=== PATIENT | female | born 1995 | race Caucasian/White ===

== ENCOUNTER 2016-10-29 09:18 | Emergency (ER) | payer OTHER ==
[~2016-10-29] VITALS: Ht 157.5 cm; Wt 81.0 kg
[~2016-10-29 09:18] MED LIST: MTR600X PO; PREN1TAB29 PO
[2016-10-29 09:22] VITALS: TEMP 36.9; Ht 157.5 cm; Wt 81.0 kg
[2016-10-29] MEDS ORDERED: SODIUM CHLORIDE 0.9% 1000ML 500 ML IV STA (09:50)
[2016-10-29] MEDS ORDERED: KETOROLAC TROMETHAMINE 30 MG/ML VIAL IV STA (09:50)
[2016-10-29 09:54] VITALS: O2SAT 99
[2016-10-29] MEDS ORDERED: OPTIRAY 320 IV PRN (10:00)
--- NOTE | 2016-10-29 10:02 | EMERGENCY ROOM VISIT NOTE ---
History Report prepared by Evin: Ibeth Nichols Under the Supervision of: Dr. Keith Odell M.D. First contact with patient: 09:46 Chief Complaint: CHEST PAIN Stated Complaint: CHEST PAIN SINCE 3 AM Nursing Triage Summary: Patient reports she awoke with sharp mid sternal chest pain that goes straight into her back at approx 0300am this morning. Patient denies any nausea, diaphoresis or history of cardiac problems. Patient did feel short of breath with the pain. Patient also reports she has an atrial septal aneurysm but states she was told she did not require any follow up again at all. History of Present Illness The patient is a 21 year old female who presents to the Emergency Room with complaints of constant substernal chest pain that started 7 hours ago. The pain radiates into her back. She states that the pain is not worse when taking a breath and she denies shortness of breath. The patient rates her discomfort as a 6/10 in severity. She states that nothing seems to make the pain worse. She tried to relieve her pain with Tylenol and she also took an antacid, but neither offered her any relief. The patient has experienced this type of the pain in the past, but she has never been evaluated for it because it typically resolves on its own. She denies any recent illness or cough. The patient denies any personal or family history of blood clots. She also denies any recent long trips. Source of History: patient Onset: 7 hours ago Position: chest (substernal) Symptom Intensity: 6/10 Timing: constant Modifying Factors (Worsening): other (none) Associated Symptoms: + back pain, No SOB, No cough Note: no recent illness Review of Systems See HPI for pertinent positives & negatives. A total of 10 systems reviewed and were otherwise negative. Past Medical & Surgical Medical Problems: (1) Uterine contractions at greater than 20 weeks of gestation Family History No pertinent family history Social History Smoking Status: Never Smoker Marital Status: Housing Status: lives with family Current/Historical Medications Scheduled Medroxyprogesterone Acetate (C (Depo-Provera Contraceptiv), 1 DOSE INJ EVERY 3 MONTHS Allergies Coded Allergies: Amoxicillin (Verified Allergy, Unknown, HIVES, 10/29/16) Physical Exam Vital Signs Date Time Temp Pulse Resp B/P Pulse Ox O2 Delivery O2 Flow Rate FiO2 10/29/16 11:04 99 19 144/95 99 Room Air 10/29/16 09:54 99 Room Air 10/29/16 09:49 94 10/29/16 09:34 98 Room Air 10/29/16 09:34 98 Room Air 10/29/16 09:22 36.9 117 18 174/106 100 Room Air Physical Exam GENERAL: Patient is in no acute distress. HEENT: No acute trauma, normocephalic atraumatic, mucous membranes moist, no nasal congestion, no scleral icterus. NECK: No stridor, no adenopathy, no meningismus, trachea is midline. CHEST: Nontender chest wall. LUNGS: Clear to auscultation bilaterally, no wheeze, no rhonchi, breath sounds equal. HEART: Tachycardic with subtle systolic murmur, rhythm is regular. ABDOMEN: Soft, nontender, bowel sounds positive, no hernias, no peritonitis. EXTREMITIES: No cyanosis or edema, full range of motion of all the joints without pain or difficulty, no signs for acute trauma. NEUROLOGIC: Oriented x 3, no acute motor or sensory deficits, no focal weakness. SKIN: No rash, no jaundice, no diaphoresis. Medical Decision & Procedures ER Provider Diagnostic Interpretation: X ray results and stated below per my interpretation and radiologist interpretation. Other radiology results and stated below per my review and radiologist interpretation: CHEST ONE VIEW PORTABLE IMPRESSION: No active disease in the chest. Electronically signed by: Anton Pinon M.D. 10/29/2016 10:26 AM Dictated Date/Time: 10/29/2016 10:[address] ANGIOGRAM OF THE CHEST IMPRESSION: 1. No acute intrathoracic findings 2. No evidence of acute pulmonary embolism 3. No focal pulmonary consolidation 4. No pathologic adenopathy Electronically signed by: Anton Pinon M.D. 10/29/2016 11:09 AM Dictated Date/Time: 10/29/2016 11:05 AM Laboratory Results 10/29/16 09:32 10/29/16 09:32 Test 10/29/16 09:32 Red Blood Count 5.18 M/uL (4.2-5.4) Mean Corpuscular Volume 80.3 fL (80-100) Mean Corpuscular Hemoglobin 27.2 pg (25-34) Mean Corpuscular Hemoglobin Concent 33.9 g/dl (32-36) RDW Standard Deviation 39.1 fL (36.4-46.3) RDW Coefficient of Variation 13.3 % (11.5-14.5) Mean Platelet Volume 12.4 fL (7.4-10.4) Prothrombin Time 11.3 SECONDS (9.0-12.0) Prothromb Time International Ratio 1.1 (0.9-1.1) Activated Partial Thromboplast Time 29.5 SECONDS (21.0-31.0) Partial Thromboplastin Ratio 1.1 Anion Gap 12.0 mmol/L (3-11) Est Creatinine Clear Calc Drug Dose 116.6 ml/min Estimated GFR () 132.4 Estimated GFR (Non- 114.2 BUN/Creatinine Ratio 9.7 (10-20) Calcium Level 9.7 mg/dl (8.5-10.1) Total Bilirubin 0.9 mg/dl (0.2-1) Aspartate Amino Transf (AST/SGOT) 14 U/L (15-37) Alanine Aminotransferase (ALT/SGPT) 25 U/L (12-78) Alkaline Phosphatase 79 U/L (45-117) Troponin I < 0.015 ng/ml (0-0.045) Total Protein 8.0 gm/dl (6.4-8.2) Albumin 4.0 gm/dl (3.4-5.0) Globulin 4.0 gm/dl (2.5-4.0) Albumin/Globulin Ratio 1.0 (0.9-2) Lipase 163 U/L (73-393) Laboratory results reviewed by me. Medications Administered Medications (Trade) Dose Ordered Sig/Monique Route Start Time Stop Time Status Last Admin Dose Admin Sodium Chloride (Nss 1000ml) 500 ml @ 999 mls/hr Q31M STAT IV 10/29/16 09:50 10/29/16 10:20 DC 10/29/16 09:50 999 MLS/HR Ketorolac Tromethamine (Toradol Inj) 30 mg NOW STAT IV 10/29/16 09:50 10/29/16 09:52 DC 10/29/16 10:00 30 MG ECG Indication: chest pain Rate (beats per minute): 106 Rhythm: sinus tachycardia Findings: nonspecific-ST abn, no ectopy ED Course 0946: The patient was evaluated in room B8. A complete history and physical exam was performed. 0950: Ordered Toradol 30 mg IV, Sodium Chloride 500 ml @ 999 mls/hr IV 1116: Reevaluated the patient. Discussed results and discharge instructions: she verbalized understanding and agreement. The patient is ready for discharge. Medical Decision Differential diagnoses considered include cardiac ischemia, pericarditis, pulmonary embolism, aortic dissection, pneumonia, musculoskeletal pain, pancreatitis. There is no leukocytosis or worrisome anemia. No significant electrolyte abnormality, kidney failure or hepatitis. EKG shows a mild sinus tachycardia, no acute ischemia. Cardiac enzyme testing 1 is not consistent with acute cardiac injury. Chest x-ray shows no mediastinal widening, pneumonia or pneumothorax. Chest CT shows no PE, no evidence for aortic dissection. The patient received IV saline, IV Toradol. She seems comfortable. The patient's pain is likely musculoskeletal. She was reassured by her findings. She is being discharged with [id number] pain medication, heat, rest. I did suggest some Zantac in case this may be some esophageal irritation , she will try this for a few days. The patient was encouraged to return if worsening. Impression Primary Impression: Precordial chest pain Scribe Attestation The scribe's documentation has been prepared under my direction and personally reviewed by me in its entirety. I confirm that the note above accurately reflects all work, treatment, procedures, and medical decision making performed by me. Departure Information Dispostion Home / Self-Care Referrals No Doctor, Assigned (PCP) Forms HOME CARE DOCUMENTATION FORM, IMPORTANT VISIT INFORMATION Patient Instructions My [facility] Additional Instructions heat to chest wall motrin or tylenol for pain can try zantac 2x per day for 1 week to see if this improves the pain return for worsening symptoms heart and lung testing today was all ok
[2016-10-29 10:21] LABS: HEMATOCRIT 41.6 % (37-47); MEAN CELL VOLUME 80.3 fL (80-100); MEAN CORPUSCULAR HEMOGLOBIN 27.2 pg (25-34); MEAN CORPUSCULAR HGB CONC 33.9 g/dl (32-36); MEAN PLATELET VOLUME 12.4 fL (7.4-10.4); PLATELET COUNT 216 K/uL (130-400); RED BLOOD COUNT 5.18 M/uL (4.2-5.4); WHITE BLOOD COUNT 7.77 K/uL (4.8-10.8)
--- NOTE | 2016-10-29 10:27 | DIAGNOSTIC IMAGING REPORT ---
CHEST ONE VIEW PORTABLE CLINICAL HISTORY: Atypical chest pain COMPARISON STUDY: No previous studies for comparison. FINDINGS: The cardiac and mediastinal contours are normal. There is no evidence of focal pulmonary consolidation. There is no evidence of failure. No pleural effusions are visualized.[ IMPRESSION: No active disease in the chest. Electronically signed by: Anton Pinon M.D. 10/29/2016 10:26 AM Dictated Date/Time: 10/29/2016 10:25 AM
[2016-10-29 10:29] LABS: ALT/SGPT 25 U/L (12-78); BLOOD UREA NITROGEN 7 mg/dl (7-18); BUN/CREATININE RATIO 9.7 (10-20); CALCIUM 9.7 mg/dl (8.5-10.1); CARBON DIOXIDE 25 mmol/L (21-32); CHLORIDE 106 mmol/L (98-107); CREATININE 0.74 mg/dl (0.60-1.20); GLUCOSE 103 mg/dl (70-99); POTASSIUM 3.6 mmol/L (3.5-5.1); SODIUM 143 mmol/L (136-145)
[2016-10-29 10:30] LABS: INR 1.1 (0.9-1.1); PARTIAL THROMBOPLASTIN RATIO 1.1; PROTHROMBIN TIME (PATIENT) 11.3 SECONDS (9.0-12.0)
[2016-10-29 10:34] LABS: ALKALINE PHOSPHATASE 79 U/L (45-117); AST/SGOT 14 U/L (15-37)
[2016-10-29] MEDS ORDERED: MEDR150I INJ (11:02)
[2016-10-29 11:04] VITALS: BP 144/95; PULSE 99; O2SAT 99
--- NOTE | 2016-10-29 11:11 | DIAGNOSTIC IMAGING REPORT ---
CT ANGIOGRAM OF THE CHEST CLINICAL HISTORY: Atypical chest pain. Possible acute pulmonary embolism. COMPARISON STUDY: Chest x-ray dated 10/29/2016 TECHNIQUE: Following the IV administration of 90 mL of [id number]-320, CT angiogram of the thorax was performed from the thoracic inlet to the lung bases utilizing the pulmonary embolus protocol. Images are reviewed in the axial, sagittal, and coronal planes. IV contrast was administered without complication. MIP imaging was performed. CT DOSE: 233.79 mGy.cm FINDINGS: No pathologically enlarged axillary mediastinal or hilar lymph nodes were visualized. There was no evidence of thoracic aortic dilatation. There were no pulmonary artery filling defects to indicate acute pulmonary embolism. No pleural effusions are visualized. There was no evidence of focal pulmonary consolidation. There is a tiny calcified right lower lobe granuloma IMPRESSION: 1. No acute intrathoracic findings 2. No evidence of acute pulmonary embolism 3. No focal pulmonary consolidation 4. No pathologic adenopathy Electronically signed by: Anton Pinon M.D. 10/29/2016 11:09 AM Dictated Date/Time: 10/29/2016 11:05 AM
[2016-12-25] MEDS ORDERED: HYDR-5688 PO (10:07)
== END 2016-10-29 11:29 | disposition home or self-care (01) ==
LOC: C.EDB 09:19
DX: R07.2 Precordial pain (principal)

== ENCOUNTER 2016-12-23 06:43 | Inpatient (IN) | payer OTHER ==
[~2016-12-23] VITALS: Ht 157.5 cm; Wt 81.0 kg
[~2016-12-23 06:43] MED LIST changes: +MEDR150I INJ; -MTR600X PO; -PREN1TAB29 PO
[2016-12-23] MEDS ORDERED: CALC500C3 PO (07:00)
[2016-12-23] MEDS ORDERED: IBUP-1050 PO (07:00)
[2016-12-23] MEDS ORDERED: SODIUM CHLORIDE 0.9% 500ML 500 ML IV STA (07:16)
[2016-12-23] MEDS ORDERED: SODIUM CHLORIDE 0.9% 1000ML 1,000 ML IV STA (07:16)
--- NOTE | 2016-12-23 07:26 | EMERGENCY ROOM VISIT NOTE ---
History Report prepared by Nandiniibdiann: Rod Astudillo Under the Supervision of: Dr. Linda Adams M.D. First contact with patient: 06:55 Chief Complaint: ABDOMINAL PAIN Stated Complaint: RT UPR QUAD PAIN X 3DAYS History of Present Illness The patient is a 21 year old female who presents to the Emergency Room with complaints of intermittent right upper quadrant pain for the past three days. The pain has been constant since yesterday morning. The pain is currently rated 6/10 in severity. The pain intermittently radiates to her back. She also notes Chills and nausea. She does not feel febrile and denies urinary symptoms, cough or cold symptoms. The patient has had decreased appetite and is feeling bloated. She did not have anything to eat this morning. Yesterday she only ate 2 tacos for dinner. She has been taking Tylenol and Motrin for pain without significant relief. She denies any past abdominal surgeries. She has not had any significant weight changes recently. She has a family history of gallbladder disease. P:1 A:0. LNMP last month and she denies the possibility of secondary to Depo use. Source of History: patient Onset: three days ago Position: abdomen (RUQ) Symptom Intensity: 6/10 Timing: intermittent Associated Symptoms: + back pain (radiation), + chills, + nausea, No cough, No fevers, No urinary symptoms Review of Systems See HPI for pertinent positives & negatives. A total of 10 systems reviewed and were otherwise negative. Past Medical & Surgical Medical Problems: (1) Uterine contractions at greater than 20 weeks of gestation Family History No pertinent family history Social History Smoking Status: Never Smoker Marital Status: Housing Status: lives with family Occupation Status: employed Current/Historical Medications Scheduled Calcium Carbonate (Tums), 1-2 TABS PO UPSET STOMACH Ibuprofen (Advil), 200-600 MG PO Q4H Medroxyprogesterone Acetate (C (Depo-Provera Contraceptiv), 1 DOSE INJ EVERY 3 MONTHS Allergies Coded Allergies: Amoxicillin (Verified Allergy, Unknown, HIVES, 12/23/16) Physical Exam Vital Signs Date Time Temp Pulse Resp B/P Pulse Ox O2 Delivery O2 Flow Rate FiO2 12/23/16 10:26 85 18 134/90 98 Room Air 12/23/16 09:55 98 Room Air 12/23/16 08:28 79 18 146/93 100 Room Air 12/23/16 06:47 37.1 90 18 156/98 100 Room Air Physical Exam Vital signs reviewed. General: Well-appearing female, in no significant distress. HEENT: No scleral icterus, PERRLA, neck supple. Atraumatic. Cardiovascular: Regular rate and rhythm, no extra sounds. Pulmonary: Clear to auscultation bilaterally, normal work of breathing. Abdomen: Soft, nondistended, positive bowel sounds. There is mild right upper quadrant tenderness to palpation. Musculoskeletal: Atraumatic, no peripheral edema. Neurologic: Patient awake alert and oriented x 3. Skin: Warm, dry, no rash Medical Decision & Procedures ER Provider Diagnostic Interpretation: Radiology results as stated below per my review and radiologist interpretation: Right upper quadrant ultrasound GALLBLADDER-ABD LIMITED CLINICAL HISTORY: cholecystitis pain. Nausea. TECHNIQUE: Ultrasound COMPARISON STUDY: None FINDINGS: Several small gallstones. Gallbladder wall thickened at 5 mm. Normal caliber biliary ductal system with a maximum diameter 4 mm. Liver pancreas and right kidney are unremarkable. No evidence for hydronephrosis. IMPRESSION: 1. Findings consistent with chronic calculus cholecystitis. 2. Multiple small gallstones with a thickened gallbladder wall. 3. Normal caliber bile ducts Electronically signed by: Ganesh Shelton M.D. 12/23/2016 8:33 AM Dictated Date/Time: 12/23/2016 8:31 AM Laboratory Results 12/23/16 07:19 Red Blood Count 5.23, Mean Corpuscular Volume 81.5, Mean Corpuscular Hemoglobin 27.9, Mean Corpuscular Hemoglobin Concent 34.3, Mean Platelet Volume 12.7, Neutrophils (%) (Auto) 76.0, Lymphocytes (%) (Auto) 15.8, Monocytes (%) (Auto) 7.1, Eosinophils (%) (Auto) 0.8, Basophils (%) (Auto) 0.1, Neutrophils # (Auto) 9.24, Lymphocytes # (Auto) 1.92, Monocytes # (Auto) 0.87, Eosinophils # (Auto) 0.10, Basophils # (Auto) 0.01 12/23/16 07:19 Test 12/23/16 07:06 12/23/16 07:19 12/23/16 08:31 Urine Renal Epithelial Cells /lpf (0-5) Urine Mucus PRESENT (NONE PRSENT) Urine Test NEG (NEG) White Blood Count 12.17 K/uL (4.8-10.8) Red Blood Count 5.23 M/uL (4.2-5.4) Hemoglobin 14.6 g/dL (12.0-16.0) Hematocrit 42.6 % (37-47) Mean Corpuscular Volume 81.5 fL (80-100) Mean Corpuscular Hemoglobin 27.9 pg (25-34) Mean Corpuscular Hemoglobin Concent 34.3 g/dl (32-36) Platelet Count 200 K/uL (130-400) Mean Platelet Volume 12.7 fL (7.4-10.4) Neutrophils (%) (Auto) 76.0 % Lymphocytes (%) (Auto) 15.8 % Monocytes (%) (Auto) 7.1 % Eosinophils (%) (Auto) 0.8 % Basophils (%) (Auto) 0.1 % Neutrophils # (Auto) 9.24 K/uL (1.4-6.5) Lymphocytes # (Auto) 1.92 K/uL (1.2-3.4) Monocytes # (Auto) 0.87 K/uL (0.11-0.59) Eosinophils # (Auto) 0.10 K/uL (0-0.5) Basophils # (Auto) 0.01 K/uL (0-0.2) RDW Standard Deviation 40.0 fL (36.4-46.3) RDW Coefficient of Variation 13.3 % (11.5-14.5) Immature Granulocyte % (Auto) 0.2 % Immature Granulocyte # (Auto) 0.03 K/uL (0.00-0.02) Anion Gap 11.0 mmol/L (3-11) Est Creatinine Clear Calc Drug Dose 118.2 ml/min Estimated GFR () 134.5 Estimated GFR (Non- 116.1 BUN/Creatinine Ratio 12.7 (10-20) Calcium Level 9.7 mg/dl (8.5-10.1) Lipase 121 U/L (73-393) Urine Color YELLOW Urine Appearance CLOUDY (CLEAR) Urine pH 7.5 (4.5-7.5) Urine Specific [place]app[place] 1.015 (1.000-1.030) Urine Protein NEG (NEG) Urine Glucose (UA) NEG (NEG) Urine Ketones 3+ (NEG) Urine Occult Blood NEG (NEG) Urine Nitrite NEG (NEG) Urine Bilirubin NEG (NEG) Urine Urobilinogen NEG (NEG) Urine Leukocyte Esterase NEG (NEG) Urine WBC (Auto) 1-5 /hpf (0-5) Urine RBC (Auto) 0-4 /hpf (0-4) Urine Hyaline Casts (Auto) 0 /lpf (0-5) Urine Epithelial Cells (Auto) 10-20 /lpf (0-5) Urine Bacteria (Auto) NEG (NEG) Date/Time Source Procedure Growth Status 12/23/16 07:06 Urine , Clean Catch Urine Culture - Final MORE THAN THREE TYPES OF ORGANISMS [place]... Complete Laboratory results per my review. Medications Administered Medications (Trade) Dose Ordered Sig/Monique Route Start Time Stop Time Status Last Admin Dose Admin Sodium Chloride 500 ml @ 999 mls/hr Q31M STAT IV 12/23/16 07:16 12/23/16 07:46 DC 12/23/16 07:34 999 MLS/HR Sodium Chloride (Nss 1000ml) 1,000 ml @ 125 mls/hr Q8H STAT IV 12/23/16 07:16 12/23/16 12:06 DC 12/23/16 07:35 125 MLS/HR Ciprofloxacin/ Dextrose (Cipro / D5w) 400 mg NOW STAT IV 12/23/16 09:10 12/23/16 09:12 DC 12/23/16 10:27 400 MG Metronidazole 500 mg 500 mg NOW STAT IV 12/23/16 09:10 12/23/16 09:12 DC 12/23/16 09:24 500 MG Lactated Ringer's (Lr 1000ml) 1,000 ml @ 125 mls/hr Q8H IV 12/23/16 10:31 01/22/17 10:30 12/24/16 10:01 125 MLS/HR ED Course 0700: The patient was evaluated by the [facility]. 0716: NSS 1000 ml @ 125 mls/hr, NSS 500 ml @ 999 mls/hr. 0720: Past medical records reviewed. The patient was evaluated in room B5. A complete history and physical examination was performed. 0840: Updated the patient. 0910: Flagyl / NSS 500 mg IV, Cipro / D5w 400 mg IV. 0910: The patient will be evaluated by Dr. Nunez, General Surgeon. 1051: Morphine Sulfate 4 mg IV. Medical Decision Differential diagnosis: Etiologies such as appendicitis, diverticulitis, PUD, biliary pathology, UTI, pancreatitis, obstruction, mesenteric ischemia, aortic pathology, infections, inflammatory bowel disease, renal colic, as well as others were entertained. This patient was evaluated and appeared to be in no significant distress. IV access was obtained and laboratory work was drawn. The patient was placed on the escort blind. Ultrasound of right upper quadrant is consistent with acute cholecystitis. Patient's case was discussed with the general surgeon on- call, Dr. Nunez. Patient has a penicillin allergy and was medicated with IV Cipro and Flagyl. She was informed of the findings and is comfortable with the plan for admission and further management. Impression Primary Impression: Acute cholecystitis Scribe Attestation The scribe's documentation has been prepared under my direction and personally reviewed by me in its entirety. I confirm that the note above accurately reflects all work, treatment, procedures, and medical decision making performed by me. Departure Information Dispostion Being Evaluated By Surgeon Referrals No Doctor, Assigned (PCP) Patient Instructions My [facility]
[2016-12-23 07:31] LABS: BASO % 0.1 %; BASO ABS # 0.01 K/uL (0-0.2); COMPLETE YES; EOS % 0.8 %; HEMATOCRIT 42.6 % (37-47); IG% 0.2 %; LYMPH % 15.8 %; LYMPH ABS # 1.92 K/uL (1.2-3.4); MEAN CELL VOLUME 81.5 fL (80-100); MEAN CORPUSCULAR HEMOGLOBIN 27.9 pg (25-34); MEAN CORPUSCULAR HGB CONC 34.3 g/dl (32-36); MEAN PLATELET VOLUME 12.7 fL (7.4-10.4); MONO % 7.1 %; PLATELET COUNT 200 K/uL (130-400); RED BLOOD COUNT 5.23 M/uL (4.2-5.4); WHITE BLOOD COUNT 12.17 K/uL (4.8-10.8)
[2016-12-23 07:41] LABS: URINE APPEARANCE CLEAR (CLEAR); URINE BILIRUBIN NEG (NEG); URINE COLOR YELLOW; URINE EPITHELIAL CELL AUTO >30 /lpf (0-5); URINE NITRITE NEG (NEG); URINE PH 5.5 (4.5-7.5); URINE SPECIFIC GRAVITY 1.019 (1.000-1.030); UROBILINOGEN NEG (NEG); ZZUR CULT IF INDIC CLEAN CATCH YES
[2016-12-23 07:48] LABS: BUN/CREATININE RATIO 12.7 (10-20); CALCIUM 9.7 mg/dl (8.5-10.1); CREATININE 0.73 mg/dl (0.60-1.20); POTASSIUM 3.6 mmol/L (3.5-5.1)
[2016-12-23 07:54] LABS: MANUAL MICROSCOPIC REQUIRED? NO; REVIEW REQ? YES
[2016-12-23 08:10] LABS: URINE MUCUS PRESENT (NONE PRSENT)
--- NOTE | 2016-12-23 08:34 | DIAGNOSTIC IMAGING REPORT ---
Right upper quadrant ultrasound GALLBLADDER-ABD LIMITED CLINICAL HISTORY: cholecystitis pain. Nausea. TECHNIQUE: Ultrasound COMPARISON STUDY: None FINDINGS: Several small gallstones. Gallbladder wall thickened at 5 mm. Normal caliber biliary ductal system with a maximum diameter 4 mm. Liver pancreas and right kidney are unremarkable. No evidence for hydronephrosis. IMPRESSION: 1. Findings consistent with chronic calculus cholecystitis. 2. Multiple small gallstones with a thickened gallbladder wall. 3. Normal caliber bile ducts Electronically signed by: Ganseh Shelton M.D. 12/23/2016 8:33 AM Dictated Date/Time: 12/23/2016 8:31 AM
[2016-12-23 09:02] LABS: URINE APPEARANCE CLOUDY (CLEAR); URINE BILIRUBIN NEG (NEG); URINE COLOR YELLOW; URINE NITRITE NEG (NEG); URINE PH 7.5 (4.5-7.5); URINE SPECIFIC GRAVITY 1.015 (1.000-1.030); UROBILINOGEN NEG (NEG); ZZUR CULT IF INDIC CLEAN CATCH NO
[2016-12-23 09:04] LABS: MANUAL MICROSCOPIC REQUIRED? NO; REVIEW REQ? NO
[2016-12-23] MEDS ORDERED: CIPROFLOXACIN 400MG / 200ML D5W IV STA (09:10)
[2016-12-23] MEDS ORDERED: METRONIDAZOLE 500MG / 100ML NSS IV STA (09:10)
[2016-12-23 09:55] VITALS: O2SAT 98; Ht 157.5 cm; Wt 81.0 kg
--- NOTE | 2016-12-23 10:42 | History and Physical ---
History & Physical Date Dec 23, 2016. Chief Complaint RUQ pain and nausea for about 5 days. no emesis. History of Present Illness The patient is a 21 year old female with complaints of Past Medical/Surgical History Medical Problems: (1) Uterine contractions at greater than 20 weeks of gestation Additional History Hepatic Disease: No Endocrine Disorder: No Kidney Disease: No Hypertension: No Heart Disease: No Bleeding Tendencies: No Infectious Diseases: No Allergies Coded Allergies: Amoxicillin (Verified Allergy, Unknown, HIVES, 12/23/16) Home Medications Scheduled Calcium Carbonate (Tums), 1-2 TABS PO UPSET STOMACH Ibuprofen (Advil), 200-600 MG PO Q4H Medroxyprogesterone Acetate (C (Depo-Provera Contraceptiv), 1 DOSE INJ EVERY 3 MONTHS Physical Examination Skin: warm/dry Eyes: normal inspection, EOMI ENT: normal ENT inspection Head: normocephalic Neck: supple, no adenopathy Respiratory/Chest: lungs clear Cardiovascular: regular rate, rhythm, no edema Abdomen / GI: + pertinent finding (mild/mod RUQ ttp. no g/r/r) Extremities: normal inspection Neurologic/Psych: alert, oriented x 3 Diagnosis 1. acute cholecystits/gallstones 2. elevated LFT's Plan of Treatment will need lap chana pt's T. bili slightly elevated...will admit/antibiotics/fluids. recheck LFT's, if improved, will plan lap chana tomorrow. If LFT's worsen, may need ERCP prior to lap chana discussed options/risks of surgery ( bleeding/dvt/pe/injury to bile ducts or bowel, infection, bile leaks etc...)...answered all her questions. pt agrees with plan
[2016-12-23] MEDS ORDERED: MoRPHine SULFATE 2 MG/ML CARP IV PRN (10:45)
[2016-12-23] MEDS ORDERED: IBUPROFEN 600 MG TAB PO PRN (10:45)
[2016-12-23] MEDS ORDERED: ACETAMINOPHEN 325 MG TAB PO PRN (10:45)
[2016-12-23] MEDS ORDERED: HYDROCODONE/ACETAMOPHEN 5/325MG TAB PO PRN (10:45)
[2016-12-23] MEDS ORDERED: ONDANSETRON INJ 2 MG/ML 2 ML VIAL IV SCH (10:45)
[2016-12-23] MEDS ORDERED: MoRPHine SULFATE 4 MG/ML 1 ML CARP\\VIAL IV STA (10:51)
[2016-12-23 11:30] VITALS: BP 138/95; PULSE 87; TEMP 36.9; O2SAT 97
[2016-12-23] MEDS ORDERED: IV FLUIDS COMPLETED PRN (11:45)
[2016-12-23] MEDS: AZTREONAM IV 1,000 MG in DEXTROSE 5% 100ML 100 ML IV SCH ×2 (13:06→19:33)
[2016-12-23] MEDS: LACTATED RINGER'S 1000ML 1,000 ML IV SCH ×2 (13:07→18:05)
[2016-12-23] MEDS: MoRPHine SULFATE 4 MG/ML 1 ML CARP\\VIAL IV PRN ×3 (13:11→23:19)
[2016-12-23 14:53] VITALS: BP 123/79; PULSE 104; TEMP 37.2; O2SAT 98
[2016-12-23] MEDS ORDERED: CIPROFLOXACIN / D5W 400 MG in PREMIXED IN D5W 200 ML IV SCH (21:00)
[2016-12-23 23:08] VITALS: BP 134/87; PULSE 86; TEMP 37.4; O2SAT 97
[2016-12-23 23:35] VITALS: O2SAT 97
[2016-12-24] MEDS: LACTATED RINGER'S 1000ML 1,000 ML IV SCH ×3 (02:07→18:12)
[2016-12-24] MEDS: MoRPHine SULFATE 4 MG/ML 1 ML CARP\\VIAL IV PRN ×3 (03:44→17:21)
[2016-12-24] MEDS: AZTREONAM IV 1,000 MG in DEXTROSE 5% 100ML 100 ML IV SCH ×3 (03:45→19:35)
[2016-12-24 07:07] VITALS: BP 118/82; PULSE 88; TEMP 37.7; O2SAT 98
[2016-12-24 07:26] VITALS: TEMP 37.4
--- NOTE | 2016-12-24 09:34 | Surgery Progress Note ---
Surgery Progress Note Date of Service Dec 24, 2016. Subjective pt continues to have RUQ pain but describing more colicky pain/comes and goes. no n/v. no new issues Objective Vital Signs: Date Time Temp Pulse Resp B/P Pulse Ox O2 Delivery O2 Flow Rate FiO2 12/24/16 07:26 37.4 12/24/16 07:23 Room Air 12/24/16 07:07 37.7 88 16 118/82 98 Room Air 12/23/16 23:35 97 Room Air 12/23/16 23:08 37.4 86 16 134/87 97 Room Air 12/23/16 15:15 Room Air 12/23/16 14:53 37.2 104 18 123/79 98 Room Air 12/23/16 11:35 Room Air 12/23/16 11:30 36.9 87 20 138/95 97 Room Air 12/23/16 10:26 85 18 134/90 98 Room Air 12/23/16 09:55 98 Room Air General Appearance: no apparent distress Head: normocephalic Neck: supple Respiratory/Chest: lungs clear Cardiovascular: no edema Abdomen: soft, + pertinent finding (mild RUQ ttp. no g/r/r) Extremities: no pedal edema Laboratory Results: Results Past 24 Hours Test 12/24/16 05:20 Range/Units Total Bilirubin 1.9 0.2-1 mg/dl Direct Bilirubin 0.3 0-0.2 mg/dl Aspartate Amino Transf (AST/SGOT) 112 15-37 U/L Alanine Aminotransferase (ALT/SGPT) 127 12-78 U/L Alkaline Phosphatase 96 45-117 U/L Total Protein 7.1 6.4-8.2 gm/dl Albumin 3.3 3.4-5.0 gm/dl Assessment & Plan 1. worsening LFT's will obtain MRCP...pending results may need ERCP prior to lap chana cont IV antibiotics recheck LFT"s
--- NOTE | 2016-12-24 14:16 | DIAGNOSTIC IMAGING REPORT ---
MRCP CLINICAL HISTORY: gallstones, elevated LFTs right upper quadrant pain TECHNIQUE: Multiaxial MRI acquisition COMPARISON STUDY: Right upper quadrant ultrasound same date FINDINGS: Multiple gallstones within a moderately thickened gallbladder lumen and/or wall. Potential trace amount of pericholecystic edematous change. Liver is uniform throughout. Spleen is unremarkable. Pancreas is uniform. MRCP component of the study shows normal caliber biliary ductal system. There is no evidence for significant filling defect. Pancreatic duct is unremarkable throughout. IMPRESSION: 1. Gallstones are within the gallbladder , with the possibility of subacute to chronic cholecystitis a consideration. 2.. I cannot entirely exclude a component of acute cholecystitis. 3. Normal MRCP. No filling defects or distention of the biliary or pancreatic ductal systems. 4. Remainder of the study is unremarkable. Electronically signed by: Ganesh Shelton M.D. 12/24/2016 2:15 PM Dictated Date/Time: 12/24/2016 2:10 PM
[2016-12-24 15:10] VITALS: BP 156/89; PULSE 106; TEMP 37.4; O2SAT 97
--- NOTE | 2016-12-24 17:38 | Discharge Instructions ---
Discharge Instructions Date of Service Dec 24, 2016. Admission Reason for Admission: Acute Cholecystitis Discharge Discharge Diagnosis / Problem: acute cholecystits/elevated LFT's Discharge Goals Goal(s): Decrease discomfort Activity Recommendations Activity Limitations: as noted below Lifting Limitations: no more than 10 pounds Exercise/Sports Limitations: until after follow-up appointment May Resume Sexual Activity: after follow-up appointment Shower/Bathe: no limitations . Instructions / Follow-Up Instructions / Follow-Up call [phone] for f/u appointment with Dr. Nunez or if you have any problems/questions Current Hospital Diet Patient's current hospital diet: Clear Liquid Diet Discharge Diet Recommended Diet: Regular Diet Procedures Procedures Performed: lap chana Pending Studies Studies pending at discharge: yes List of pending studies: path report Medical Emergencies . Who to Call and When: Medical Emergencies: If at any time you feel your situation is an emergency, please call 911 immediately. . Non-Emergent Contact Non-Emergency issues call your: Primary Care Provider, Surgeon Call Non-Emergent contact if: temperature is above 101, wound has increased drainage, wound has increased redness . "Provider Documentation" section prepared by Evan Nunez. VTE Core Measure Inpt VTE Proph given/why not?: Luisito Castillo, SCD's
--- NOTE | 2016-12-24 18:19 | Anesthesiology Progress Note ---
Anesthesia Progress Note Date of Service Dec 24, 2016. Progress Notes The patient is a 21 y/o female with no significant PMH scheduled for Lap cholecystectomy with Dr. Nunez tomorrow. The patient reports that she has a h/o atrial septal aneurysm, but that no further follow up was necessary. She has an 8 month old at home and is very active. She is able to climb two flights of stairs without chest pain or shortness of breath. EKG from October showed ST with HR 106 no ischemic changes. Urine HCG done on admission was negative. She was has a Mallampati I airway with good flexion/extension. Her cardiac and pulmonary exams are normal. The patient appears optimized for surgery tomorrow. She consented for GA. All questions were answered. She was instructed not to eat or drink anything after midnight except for medications with a sip of water.
[2016-12-24 23:15] VITALS: BP 128/86; PULSE 91; TEMP 37.4; O2SAT 99
[2016-12-25] VITALS (8 sets, daily range): BP systolic 119–137; BP diastolic 74–88; PULSE 74–97; TEMP 36.4–37.5; O2SAT 96–99
[2016-12-25] MEDS: MoRPHine SULFATE 4 MG/ML 1 ML CARP\\VIAL IV PRN ×2 (00:10→05:59)
[2016-12-25] MEDS: LACTATED RINGER'S 1000ML 1,000 ML IV SCH ×3 (02:18→18:31)
[2016-12-25] MEDS: AZTREONAM IV 1,000 MG in DEXTROSE 5% 100ML 100 ML IV SCH ×3 (03:22→19:41)
[2016-12-25] MEDS ORDERED: EpHEDrine SULFATE INJ 50 MG/ML AMP IV PRN (08:00)
[2016-12-25] MEDS ORDERED: ATROPINE SULFATE 0.1 MG/ML 5ML SYR IV PRN (08:00)
[2016-12-25] MEDS ORDERED: ONDANSETRON INJ 2 MG/ML 2 ML VIAL IV PRN (08:00)
[2016-12-25] MEDS ORDERED: FENTANYL CITRATE INJ 50 MCG/1 ML 2 ML VIAL ONE ×3 (09:34→11:03)
[2016-12-25] MEDS ORDERED: GLYCOPYRROLATE INJ 0.2 MG/ML VIAL ONE (09:34)
[2016-12-25] MEDS ORDERED: DEXAMETHASONE SOD INJ 4 MG/ML VIAL ONE (09:34)
[2016-12-25] MEDS ORDERED: MIDAZOLAM HCL 1 MG/ML 2ML VIAL ONE (09:34)
[2016-12-25] MEDS ORDERED: ONDANSETRON INJ 2 MG/ML 2 ML VIAL ONE ×2 (09:34→10:39)
[2016-12-25] MEDS ORDERED: LIDOCAINE HCL 2% 2 ML VIAL (20MG/ML) ONE (09:34)
[2016-12-25] MEDS ORDERED: PROPOFOL IV EMULSION 10 MG/ML 20 ML VIAL IV ONE ×2 (09:34→11:12)
[2016-12-25] MEDS ORDERED: NEOSTIGMINE METHYLSULFATE 5 MG/5 ML SYR ONE (09:34)
[2016-12-25] MEDS ORDERED: ROCURONIUM BROMIDE 10 MG/ML 5 ML VIAL ONE (09:34)
[2016-12-25] MEDS ORDERED: CEFAZOLIN IV 2,000 MG/60 ML D5W IV ONE (09:57)
[2016-12-25] MEDS ORDERED: BUPIVACAINE/EPINEPHRINE 0.5% MPF 1:200,000 30 ML VIAL ONE (10:05)
--- NOTE | 2016-12-25 10:06 | History & Physical Bridge Note ---
H&P Re-Evaluation Bridge Note: I have examined the patient, reviewed the History & Physical and in the interval since the performance of the History & Physical I have noted the following changes of clinical significance: LFT's improving. MRCP essentially negative. ok to proceed with lap chana. questions answered.
[2016-12-25] MEDS ORDERED: HYDR-5688 PO (10:07)
[2016-12-25] MEDS ORDERED: NURSING VERBAL MED ORDER ONE (10:15)
[2016-12-25] MEDS ORDERED: DiphenhydrAMINE HCL 50 MG/ML VIAL ONE (10:34)
[2016-12-25] MEDS ORDERED: ESMOLOL HCL 10 MG/ML 10 ML VIAL ONE (10:37)
--- NOTE | 2016-12-25 11:51 | Medical Student: [facility] ---
Immediate Operative Summary Operative Date Dec 25, 2016. Pre-Operative Diagnosis Acute cholecystitis Post-Operative Diagnosis Acute cholecystitis with gallstone obstructing cystic duct Procedure(s) Performed Laparoscopic cholecystectomy Surgeon Dr. Nunez Room Inspector Surgeon(s) Victoria Galaviz, MS4 Estimated Blood Loss 100 cc Findings Acutely inflamed gallbladder with clear bile and gallstone obstructing the cystic duct. Enlarged Calot's node visualized. Specimens 1. Gallbladder Drains None Anesthesia GETA Complication(s) None Disposition Recovery Room / PACU (In stable condition)
--- NOTE | 2016-12-25 11:55 | [facility] Operative Report ---
Operative Report Operative Date Dec 25, 2016. Pre-Operative Diagnosis Acute Cholecystitis Post-Operative Diagnosis same Procedure(s) Performed lap chana Surgeon Dr. Nunez Estimated Blood Loss 100ml Findings acutely inflammed gallbladder with gallstones Specimens A. Gall bladder Anesthesia get Complication(s) None Disposition Recovery Room / PACU I attest to the content of the Intraoperative Record and any orders documented therein. Any exceptions are noted below.
[2016-12-25] MEDS ORDERED: HYDROCODONE/ACETAMOPHEN 5/325MG TAB PO PRN (12:00)
[2016-12-25] MEDS: FENTANYL CITRATE INJ 50 MCG/1 ML 2 ML VIAL IV PRN ×4 (12:13→12:28)
[2016-12-25] MEDS: HYDROmorphone INJ 1 MG/ML SYR IV PRN ×3 (12:33→12:43)
--- NOTE | 2016-12-25 12:55 | Anesthesiology Progress Note ---
Anesthesia Post Op Note Date & Time Dec 25, 2016 at 12:55 Vital Signs Pain Intensity: 4 Vital Signs Past 12 Hours Date Time Temp Pulse Resp B/P Pulse Ox O2 Delivery O2 Flow Rate FiO2 12/25/16 12:40 75 14 140/72 97 Room Air 12/25/16 12:30 64 14 133/79 95 Room Air 12/25/16 12:20 66 14 140/83 95 Room Air 12/25/16 12:10 67 14 138/92 100 Mask 10 12/25/16 12:00 83 14 129/91 100 Mask 10 12/25/16 11:53 36.7 83 14 143/85 100 Mask 10 12/25/16 07:30 Room Air 12/25/16 07:20 37.5 91 17 119/74 99 Room Air Notes Mental Status: alert / awake / arousable, participated in evaluation Pt Amnestic to Procedure: Yes Nausea / Vomiting: adequately controlled Pain: adequately controlled Airway Patency, RR, SpO2: stable & adequate BP & HR: stable & adequate Hydration State: stable & adequate Anesthetic Complications: no major complications apparent
--- NOTE | 2016-12-25 14:15 | OPERATIVE REPORT ---
DATE OF OPERATION: 12/25/2016 PREOPERATIVE DIAGNOSIS: Acute calculous cholecystitis. POSTOPERATIVE DIAGNOSIS: Same. PROCEDURE: Laparoscopic cholecystectomy. SURGEON: Dr. Nunez. ESTIMATED BLOOD LOSS: Approximately 100 mL. COMPLICATIONS: No immediate. ANESTHESIA: General. The patient tolerated the procedure well. OPERATIVE NOTE: After informed consent was obtained, the patient taken to the operating suite, placed in supine position. After successful intubation the abdomen was sterilely prepped and draped in usual fashion. A periumbilical incision made with an 11 blade scalpel and carried down through the soft tissue using electrocautery. I opened the fascia. I elevated the peritoneum with hemostats and incised under direct vision using a Metzenbaum scissor. A finger sweep was performed. A 12 mm Catherine trocar was placed and the abdomen was insufflated 18 mmHg. Laparoscope was inserted and the abdomen examined 360 degrees. A subxiphoid 5 mm port and 2 right upper quadrant 5 mm ports were placed under direct vision. The patient was then placed in reverse Trendelenburg position slightly airplaned to the left. When we looked in the right upper quadrant there was an acutely inflamed gallbladder. We were unable grasp it with graspers so used a needle beak to decompress it. There was in fact white bile indicating a cystic duct obstruction. Once we sucked some fluid out we were then able to grasp it and elevate it superiorly and laterally. A [place] dissector was used to take down adhesions around the neck of the gallbladder. There was in fact a stone lodged in the cystic duct; however, I was able to skeletonize the cystic duct just distal to this. I then used a clip hydraulic elevator constructor to place the clips below the area of the stone, 2 proximal and 1 distally and transected it. In similar fashion, the cystic artery was identified, skeletonized, clipped and divided. The gallbladder was then removed from the gallbladder fossa intact. It was placed into an EndoCatch bag. We thoroughly irrigated the right upper quadrant. Small bleeding areas on the gallbladder fossa were controlled using electrocautery. Final irrigation was performed. There was adequate hemostasis and no evidence of a bile leak at the end of the case. Quick look around the abdomen showed no other abnormalities. The trocars were all removed. I had to extend the periumbilical incision a little bit in order to get the large stones out with the gallbladder. We then closed this fascial defect using 0 Vicryl in several interrupted [id number] sutures with 0 Vicryl. I then irrigated all wounds and closed them with 4-0 Monocryl. Marcaine was injected around them for postoperative pain control. Dermabond glue used as dressing. The patient was awakened, extubated, and transferred to recovery in stable condition. I attest to the content of the Intraoperative Record and any orders documented therein. Any exceptio ns are noted below.
[2016-12-25] MEDS: HYDROCODONE/ACETAMOPHEN 5/325MG TAB PO PRN ×2 (18:44→23:30)
[2016-12-26] MEDS: LACTATED RINGER'S 1000ML 1,000 ML IV SCH (00:17)
[2016-12-26 03:43] VITALS: BP 112/69; PULSE 58; TEMP 36.7; O2SAT 98
[2016-12-26] MEDS: AZTREONAM IV 1,000 MG in DEXTROSE 5% 100ML 100 ML IV SCH (03:51)
[2016-12-26 05:49] LABS: HEMATOCRIT 38.2 % (37-47); MEAN CELL VOLUME 81.1 fL (80-100); MEAN CORPUSCULAR HEMOGLOBIN 27.4 pg (25-34); MEAN CORPUSCULAR HGB CONC 33.8 g/dl (32-36); MEAN PLATELET VOLUME 12.3 fL (7.4-10.4); PLATELET COUNT 225 K/uL (130-400); RED BLOOD COUNT 4.71 M/uL (4.2-5.4); WHITE BLOOD COUNT 10.46 K/uL (4.8-10.8)
--- NOTE | 2016-12-26 07:38 | Surgery Progress Note ---
Surgery Progress Note Date of Service Dec 26, 2016. Subjective Post OP Day: 1 + diet (regular), + feeling well, + pain controlled, No nausea Objective Vital Signs: Date Time Temp Pulse Resp B/P Pulse Ox O2 Delivery O2 Flow Rate FiO2 12/26/16 03:43 36.7 58 16 112/69 98 Room Air 12/25/16 23:51 36.9 75 16 127/76 98 Room Air 12/25/16 23:27 Room Air 12/25/16 19:09 36.4 74 18 136/84 98 Room Air 12/25/16 16:30 Room Air 12/25/16 16:12 37.0 83 19 137/88 97 Room Air 12/25/16 15:16 36.9 97 18 129/82 96 Room Air 12/25/16 14:15 36.6 81 16 134/87 97 Room Air 12/25/16 14:03 37.2 79 16 123/83 96 Room Air 12/25/16 13:15 96 Room Air 12/25/16 13:15 Room Air 12/25/16 13:00 37.6 77 16 126/85 96 Room Air 12/25/16 12:50 37.5 78 14 142/71 96 Room Air 12/25/16 12:40 75 14 140/72 97 Room Air 12/25/16 12:30 64 14 133/79 95 Room Air 12/25/16 12:20 66 14 140/83 95 Room Air 12/25/16 12:10 67 14 138/92 100 Mask 10 12/25/16 12:00 83 14 129/91 100 Mask 10 12/25/16 11:53 36.7 83 14 143/85 100 Mask 10 Abdomen: soft Laboratory Results: Results Past 24 Hours Test 12/26/16 05:28 Range/Units White Blood Count 10.46 4.8-10.8 K/uL Red Blood Count 4.71 4.2-5.4 M/uL Hemoglobin 12.9 12.0-16.0 g/dL Hematocrit 38.2 37-47 % Mean Corpuscular Volume 81.1 80-100 fL Mean Corpuscular Hemoglobin 27.4 25-34 pg Mean Corpuscular Hemoglobin Concent 33.8 32-36 g/dl RDW Standard Deviation 39.2 36.4-46.3 fL RDW Coefficient of Variation 13.0 11.5-14.5 % Platelet Count 225 130-400 K/uL Mean Platelet Volume 12.3 7.4-10.4 fL Total Bilirubin 0.6 0.2-1 mg/dl Direct Bilirubin 0.2 0-0.2 mg/dl Aspartate Amino Transf (AST/SGOT) 54 15-37 U/L Alanine Aminotransferase (ALT/SGPT) 144 12-78 U/L Alkaline Phosphatase 125 45-117 U/L Total Protein 7.6 6.4-8.2 gm/dl Albumin 3.1 3.4-5.0 gm/dl Assessment & Plan s/p lap chana tolerating diet and po analgesics bili normal stable for d/c
[2016-12-26 07:45] VITALS: BP 147/82; PULSE 84; TEMP 36.6; O2SAT 99
[2016-12-26 07:53] VITALS: BP 112/69; PULSE 58; TEMP 36.7; O2SAT 98
--- NOTE | 2016-12-26 09:31 | DISCHARGE SUMMARY ---
PRIMARY DISCHARGE DIAGNOSIS: Cholelithiasis and acute cholecystitis. PROCEDURE PERFORMED: Laparoscopic cholecystectomy on 12/25/[address] Nunez. HOSPITAL COURSE: The patient is a 21-year-old female who presented to the Emergency Department with a complaint of right upper quadrant pain and nausea. Ultrasound showed cholelithiasis and gallbladder wall thickening. Her bilirubin was elevated slightly at 1.5. She was admitted to surgery service, started on IV antibiotics and repeat labs scheduled for the next morning. Her bilirubin increased to 1.9 and had slight elevation in AST and ALT which prompted an MRCP. The MRCP did not show any filling defects. She was then kept n.p.o. after midnight and taken to the operating room the following day for laparoscopic cholecystectomy. She did have acute cholecystitis with rather thickened gallbladder wall. The procedure was well tolerated. She was transferred to the surgical floor, kept again overnight and continued on IV antibiotics. By postoperative day 1, she was tolerating diet and oral analgesics. Her white count was normalizing. Her bilirubin was normal. AST, ALT and alkaline phosphatase were minimally elevated. Her abdomen was soft. Incisions were dry. She was stable for discharge. DISCHARGE INSTRUCTIONS: Discharge home. Follow up with Dr. Nunez in approximately 2 weeks. 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 DISCHARGE MEDICATIONS: Ashley 1-2 tablets every 4 hours as needed. Continue home medications, Advil 200-600 mg every 4 hours as needed, Tums 1-2 tablets as needed and Depo-Provera injection every 3 months. MTDD
== END 2016-12-26 09:19 | disposition home or self-care (01) | DRG 419 ==
LOC: ENRESERVTM → ENRESERVDT → C.EDB 06:44 → C.MSW 10:35 → OBSVTOIN 12-24 17:39
PROVIDERS: ADMIT Surgery; ATTEND Surgery
PROC: 0FT44ZZ Resection of Gallbladder, Percutaneous Endoscopic Approach (ICD-10-PCS; principal; 2016-12-25 10:00)
DX: K80.00 Calculus of gallbladder with acute cholecystitis without obstruction (principal)

== ENCOUNTER → 2017-07-02 | Outpatient (CLI) | payer OTHER ==
[~2017-07-02] MED LIST changes: +CALC500C3 PO; +IBUP-1050 PO
[2017-07-05 02:02] LABS: CHLAMYDIA TRACH RNA*** NOT DETECTED (NOT DETECTED); GC (NEIS GONORRHOEAE)RNA** NOT DETECTED (NOT DETECTED)
== END | disposition home or self-care (01) ==
LOC: C.LABSPEC 18:01
PROVIDERS: ATTEND Physician Assistant
DX: Z12.4 Encounter for screening for malignant neoplasm of cervix (principal); Z30.9 Encounter for contraceptive management, unspecified